=== PATIENT | male | born 1935 | race Caucasian/White ===

== ENCOUNTER 2019-03-10 10:18 | Day surgery (SDC) | payer MEDICARE ==
[~2019-03-10] VITALS: Ht 182.9 cm; Wt 77.1 kg
[~2019-03-10 10:18] MED LIST: CIPROFLOXACN500 MG PO; DILAUDID 2MG2 MG/TA1 PO; DOXAZOSIN1 MG PO; ESTER-C500 M2 PO; FISH OIL1200 M1 PO; HYDROCHLORO25 MG/TAB PO; LECITHIN1200 MG PO; MULTIVITAMIN AD1 TAB PO; RESTASIS0.05 %; SINGULAIR10 MG PO; TAMSULOSIN0.4 MG PO; VITAMIN B121000 MCG PO; VITAMIN D3 PO
[2019-03-10] MEDS ORDERED: ALLEGRA-D 2424 HOUR PO (10:33)
[2019-03-10] MEDS ORDERED: PERCOCET 5/325M1 TAB PO (13:32)
[2019-03-10 14:50] VITALS: BP 135/66
== END 2019-03-10 14:20 | disposition home or self-care (01) ==
LOC: ORM 10:18
PROVIDERS: ATTEND Urology
PROC: 0TND8ZZ Release Urethra, Via Natural or Artificial Opening Endoscopic (ICD-10-PCS; principal; 2019-03-10)
DX: N35.912 Unspecified bulbous urethral stricture, male (principal); N40.1 Benign prostatic hyperplasia with lower urinary tract symptoms; R35.0 Frequency of micturition; R39.12 Poor urinary stream; R35.1 Nocturia; Z80.52 Family history of malignant neoplasm of bladder; Z85.46 Personal history of malignant neoplasm of prostate; Z92.3 Personal history of irradiation; Z79.899 Other long term (current) drug therapy
CPT/HCPCS: C1769; J1100; J1956

== ENCOUNTER 2022-06-02 17:08 | Emergency (ER) | payer MEDICARE ==
[2022-06-02] VITALS (8 sets, daily range): BP systolic 130–150; BP diastolic 55–74
[~2022-06-02] VITALS: Ht 182.9 cm; Wt 75.0 kg
[~2022-06-02 17:08] MED LIST changes: +ALLEGRA-D 2424 HOUR PO; +PERCOCET 5/325M1 TAB PO
[2022-06-02 18:47] LABS: HEMOGLOBIN 13.5 g/dl (14.0-18.0); IMMATURE GRANULOCYTES 0.4 % (0.0-5.0); MEAN CELL VOLUME 95.6 fL CALC (80.0-100.0); MEAN CORPUSCULAR HGB 31.5 pG CALC (26.0-32.0); MEAN CORPUSCULAR HGB CONC 32.9 g/dL CAL (32.0-36.0); NEUT# 5.97 thou/uL (1.82-7.42); RED BLOOD COUNT 4.29 mill/uL (4.70-6.10); RED CELL DISTRI WIDTH 13.2 % (11.5-15.5)
[2022-06-02 19:03] LABS: ALBUMIN 3.8 g/dL (3.2-5.0); ALKALINE PHOSPHATASE 56 u/l (38-126); ANION GAP 13 (6-22 (CALC)); BILIRUBIN, TOTAL 0.9 mg/dL (0.0-1.4); BUN 20 mg/dL (8-23); BUN/CREATININE RATIO 17 (12-20 (CALC)); CARBON DIOXIDE 27 mmol/l (22-30); CHLORIDE 105 mmol/l (95-108); CREATININE 1.1 mg/dL (0.7-1.3); GFR FOR AFR.AMER. > 60 ML/MIN (>=60 (CALC)); GFR OTHER RACES > 60 ML/MIN (>=60 (CALC)); POTASSIUM 4.2 mmol/l (3.5-5.1); SGOT/AST 28 u/l (19-48); SODIUM 141 mmol/l (137-146); TOTAL PROTEIN 5.7 g/dL (6.3-8.2)
[2022-06-02] MEDS ORDERED: TAM75CAP PO (19:24)
[2022-06-02] MEDS ORDERED: ZITHROMAX500 MG PO (19:24)
== END 2022-06-02 20:11 | disposition home or self-care (01) ==
LOC: ED 17:08
PROVIDERS: Emergency Medicine
DX: U07.1 COVID-19 (principal); J10.1 Influenza due to other identified influenza virus with other respiratory manifestations; M79.7 Fibromyalgia

== ENCOUNTER 2022-12-23 15:34 | Emergency (ER) | payer MEDICARE ==
[~2022-12-23] VITALS: Ht 182.9 cm; Wt 74.8 kg
[~2022-12-23 15:34] MED LIST changes: +TAM75CAP PO; +ZITHROMAX500 MG PO
[2022-12-23] MEDS ORDERED: PREDNISONE10 MG PO (16:47)
[2022-12-23] MEDS ORDERED: 24HR ALLERGY R180 MG (16:48)
[2022-12-23] MEDS ORDERED: KEVZARA150 MG/1.2 (16:50)
[2022-12-23] MEDS ORDERED: KEFLEX500 MG PO (17:34)
[2022-12-23 18:19] VITALS: BP 156/82
== END 2022-12-23 18:35 | disposition home or self-care (01) ==
LOC: ED 15:34
DX: S51.811A Laceration without foreign body of right forearm, initial encounter (principal); W22.09XA Striking against other stationary object, initial encounter; I10 Essential (primary) hypertension

== ENCOUNTER 2023-03-22 20:16 | Emergency (ER) | payer MEDICARE ==
[~2023-03-22] VITALS: Ht 182.9 cm; Wt 77.0 kg
[2023-03-22] VITALS (14 sets, daily range): BP systolic 51–167; BP diastolic 36–140
[~2023-03-22 20:16] MED LIST changes: +24HR ALLERGY R180 MG; +KEFLEX500 MG PO; +KEVZARA150 MG/1.2; +PREDNISONE10 MG PO
[2023-03-22 21:04] LABS: BASO% 0.4 % (0-3); EOS% 1.1 % (0-8); HEMATOCRIT 45.6 % (39.0-50.0); HEMOGLOBIN 15.1 g/dl (14.0-18.0); IMMATURE GRANULOCYTES 0.4 % (0.0-5.0); LYMPH% 23.9 % (15-41); MEAN CELL VOLUME 95.6 fL CALC (80.0-100.0); MEAN CORPUSCULAR HGB 31.7 pG CALC (26.0-32.0); MEAN CORPUSCULAR HGB CONC 33.1 g/dL CAL (32.0-36.0); MONO% 6.4 % (2-13); NEUT# 4.73 thou/uL (1.82-7.42); NEUT% 67.8 % (42-76); RED BLOOD COUNT 4.77 mill/uL (4.70-6.10); RED CELL DISTRI WIDTH 12.7 % (11.5-15.5)
[2023-03-22 21:08] LABS: URINE BILIRUBIN - DIPSTICK Negative (NEGATIVE); URINE BLOOD DIPSTICK Small (NEGATIVE); URINE GLUCOSE - DIPSTICK Negative (NEGATIVE); URINE KETONE Negative (NEGATIVE); URINE LEUK ESTERASE Negative (NEGATIVE); URINE NITRITE - DIPSTICK Negative (Negative); URINE PROTEIN - DIPSTICK Negative (NEG-TRACE); URINE SPECIFIC GRAVITY 1.015; URINE UROBILINOGEN - DIPSTICK 0.2 E.U./dL (0.2)
[2023-03-22 21:09] LABS: URINE COLOR Yellow
[2023-03-22 21:10] LABS: URINE WBC 0-2 WBC/hpf (0-5)
[2023-03-22 21:30] LABS: ALKALINE PHOSPHATASE 53 u/l (38-126); ANION GAP 12 (6-22 (CALC)); BILIRUBIN, TOTAL 0.8 mg/dL (0.2-1.3); BUN 22 mg/dL (8-23); BUN/CREATININE RATIO 19 (12-20 (CALC)); CARBON DIOXIDE 25 mmol/l (22-30); CHLORIDE 106 mmol/l (95-108); CREATININE 1.1 mg/dL (0.7-1.3); GFR FOR AFR.AMER. > 60 ML/MIN (>=60 (CALC)); GFR OTHER RACES > 60 ML/MIN (>=60 (CALC)); LIPASE 127 u/l (23-300); POTASSIUM 3.8 mmol/l (3.5-5.1); SGOT/AST 48 u/l (19-48); SODIUM 139 mmol/l (137-146); TOTAL PROTEIN 6.3 g/dL (6.3-8.2)
[2023-03-22 21:34] LABS: ACT PARTIAL THROMBO TIME 22.6 SECONDS (20.0-32.5); INTERNATIONAL NORMALIZED RATIO 1.1 RATIO (0.7-1.3); PROTHROMBIN TIME 10.5 SECONDS (9.0-12.5)
[2023-03-23] VITALS (8 sets, daily range): BP systolic 120–154; BP diastolic 68–77
[2023-03-23 00:38] LABS: BASO% 0.5 % (0-3); EOS% 1.2 % (0-8); IMMATURE GRANULOCYTES 0.5 % (0.0-5.0); LYMPH% 15.7 % (15-41); MEAN CELL VOLUME 97.4 fL CALC (80.0-100.0); MEAN CORPUSCULAR HGB 31.7 pG CALC (26.0-32.0); MEAN CORPUSCULAR HGB CONC 32.6 g/dL CAL (32.0-36.0); MONO% 6.7 % (2-13); NEUT# 4.85 thou/uL (1.82-7.42); NEUT% 75.4 % (42-76); RED BLOOD COUNT 3.78 mill/uL (4.70-6.10); RED CELL DISTRI WIDTH 12.8 % (11.5-15.5)
[2023-03-23 00:39] LABS: HEMATOCRIT 36.8 % (39.0-50.0)
== END 2023-03-23 03:25 | disposition short-term general hospital (02) ==
LOC: ED 20:16 → ED-I 03-23 00:01 → ED 03-23 03:25
PROVIDERS: Emergency Medicine
DX: K57.31 Diverticulosis of large intestine without perforation or abscess with bleeding (principal); M35.3 Polymyalgia rheumatica
CPT/HCPCS: Q9967